=== PATIENT | female | born 1955 | race Caucasian/White ===

== ENCOUNTER → 2017-06-25 | Outpatient (CLI) | payer OTHER ==
[~2017-06-25] MED LIST: CIPRO500 MG PO; ELAVIL25 MG PO; FLORASTOR250 MG PO; PROZAC10 MG PO; ST. JOSEPH ASPI81 MG PO
== END | disposition home or self-care (01) ==
LOC: CDC 15:28
DX: Z01.810 Encounter for preprocedural cardiovascular examination (principal); M18.12 Unilateral primary osteoarthritis of first carpometacarpal joint, left hand; M79.642 Pain in left hand
CPT/HCPCS: 93000